=== PATIENT | male | born 1995 | race Hispanic/Latino ===

== ENCOUNTER 2021-11-11 07:17 | Outpatient (CLI) | payer BC | END 2021-11-11 07:18 | disposition home or self-care (01) | LOC: ULT 07:17 | PROVIDERS: ATTEND Family Medicine | DX: R10.84 Generalized abdominal pain (principal); K76.0 Fatty (change of) liver, not elsewhere classified; K80.20 Calculus of gallbladder without cholecystitis without obstruction | CPT/HCPCS: 76700 ==

== ENCOUNTER 2022-05-20 09:02 | Day surgery (SDC) | payer BC ==
[2022-05-18 11:20] VITALS: BMI 33.9
[2022-05-20] MEDS ORDERED: Famotidine/PF 20 mg/2ml Vial ONE (10:25)
[2022-05-20] MEDS ORDERED: CEFAZOLIN 2 GM VIAL ONE (10:26)
[2022-05-20] MEDS ORDERED: Sodium Chloride 0.9% 100 ML ONE (10:26)
[2022-05-20] MEDS ORDERED: Bupivacaine/Epinephrine 0.25% 30 ML VIAL ONE (10:34)
[2022-05-20] MEDS ORDERED: Iopamidol 15 ML ONE ×2 (10:34→10:35)
[2022-05-20] MEDS ORDERED: Dexmedetomidine 200 MCG/2 ML VIAL ONE (10:48)
[2022-05-20] MEDS ORDERED: SUGAMMADEX SODIUM 200 MG/2 ML VIAL ONE (10:48)
[2022-05-20] MEDS ORDERED: Fentanyl 250 MCG/5 ML VIAL ONE (10:48)
[2022-05-20] MEDS ORDERED: Rocuronium Bromide 10 MG/ML (10ML VIAL) ONE (11:33)
[2022-05-20] MEDS ORDERED: Ondansetron PF 4 MG/2 ML Vial ONE (11:33)
[2022-05-20] MEDS ORDERED: Ketorolac Tromethamine 30 MG/ML VIAL ONE (11:33)
[2022-05-20] MEDS ORDERED: PROPOFOL 200 MG/20 ML VIAL ONE (11:33)
[2022-05-20] MEDS ORDERED: Dexamethasone 20 MG/5 ML VIAL ONE (11:33)
[2022-05-20] MEDS ORDERED: Lidocaine 1% PF 5 ML VIAL ONE (11:33)
[2022-05-20] MEDS ORDERED: HYDROcodone/Acetaminophen 5/325 mg Tablet ONE (13:51)
== END 2022-05-20 14:27 | disposition home or self-care (01) ==
LOC: SDC 09:02
PROVIDERS: ATTEND Surgery
PROC: 0FT44ZZ Resection of Gallbladder, Percutaneous Endoscopic Approach (ICD-10-PCS; principal; 2022-05-20)
PROC: 0FB04ZX Excision of Liver, Percutaneous Endoscopic Approach, Diagnostic (ICD-10-PCS; principal; 2022-05-20)
DX: K76.0 Fatty (change of) liver, not elsewhere classified (principal); K81.1 Chronic cholecystitis; Z79.899 Other long term (current) drug therapy
CPT/HCPCS: 88304; 88307; 88313; C1889; J1100; J1611; J1885; J2405; J2704; J3010; J3490; Q9967; S0028

== ENCOUNTER 2025-01-16 14:51 | Outpatient (CLI) | payer BC | END 2025-01-16 14:52 | disposition home or self-care (01) | LOC: SCSRAD 14:51 | PROVIDERS: ATTEND Nurse Practitioner Family | DX: S99.911A Unspecified injury of right ankle, initial encounter (principal); M79.89 Other specified soft tissue disorders ==